=== PATIENT | male | born 1985 | race African-American/Black ===

== ENCOUNTER 2019-08-26 11:53 | Emergency (ER) | payer SELFPAY ==
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
[2019-08-26 12:03] VITALS: BP 134/84; PULSE 70; RESP 18; TEMP 36.5; O2SAT 100
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
[2019-08-26] MEDS: HYDROMORPHONE HCL 1 MG/ML INJ IV PUSH ×2 (13:01→14:13)
[2019-08-26] MEDS: ONDANSETRON INJ 4 MG/2 ML VIAL IV PUSH (13:02)
--- NOTE | 2019-08-26 13:26 | PC.NURSE ---
Pt was encouraged to stay in bed since IV narcotics were given. When I went into room he was out of bed and sittin gn stool. He states he needed to sit there due to discomfort. reminded him to call nurse for further assistance. .
[2019-08-26 13:28] VITALS: PULSE 68; RESP 18; O2SAT 98
[2019-08-26 13:29] VITALS: BP 129/87
[2019-08-26] MEDS: SODIUM CHLORIDE 0.9% IV 1,000 ML 125 ML IV CONT (14:12)
--- NOTE | 2019-08-26 14:30 | PC.NURSE ---
This RN found patient sitting on stool in room. Pt removed split that was applied by this RN. Pt states I can't sit in the bed, it hurts. This RN why he removed his split patient states Because it hurts, I can't wear that. This RN unhooked patient from IV fluids as patient refused to stay in bed and it increased patient risk for fall. Patient was educated and encouraged to get back and bed and remain in bed as well as allowing this RN to reapply splint to wrist. Pt refused to get back in bed and allow this RN to reapply his splint. EDP was notified of patient's refusal to stay in bed, removing his splint and discontinuation of his IV fluids. ED verbalized understanding and agreed with stopping IV fluids at this time. [facility] was called and notified.
[2019-08-26 14:47] VITALS: BP 127/85
== END 2019-08-26 14:50 | disposition short-term general hospital (02) ==
PROVIDERS: Emergency Provider General Practice
DX: S62.021A Displaced fracture of middle third of navicular [scaphoid] bone of right wrist, initial encounter for closed fracture (principal); F17.200 Nicotine dependence, unspecified, uncomplicated; V86.55XA Driver of 3- or 4- wheeled all-terrain vehicle (ATV) injured in nontraffic accident, initial encounter
CPT/HCPCS: 29125; 73110; 96374; 96375; 96376; 99285; J1170; J2405; J7030